=== PATIENT | male | born 1995 | race Hispanic/Latino ===

== ENCOUNTER 2017-01-24 19:37 | Emergency (ER) | payer MEDICAID ==
[~2017-01-24] VITALS: Ht 175.3 cm; Wt 72.0 kg
[~2017-01-24 19:37] MED LIST: ALBUTEROL S2.5 MG/.5 IN; ALBUTEROL SUL0.083 % IN; ALBUTEROL0.083 % IN; ALBUTEROL2.5 MG/3 M IN; AMOXICILLIN500 MG OR; AMOXICILLIN500 MG PO; AMOXIL500 MG OR; BENADRY1 OR; DUONEB IN; KEFLEX500 MG PO; MEDDOSEPAK PO; MOTRIN, CH20 MG/1 ML OR; NASONEX50 MCG/AC NAB; OMNICEF300 MG PO; PATANOL0.1 % OP; PENICILLN VK500 M1 PO; PREDNISODT15 PO; PROAIR HFA IN; PROVENTIL HFA IN; ROBITUSSIN200 MG/10 PO; ROCEPHIN 1 GM1 GM IM; SINGULAIR5 MG OR; SINGULAIR5 MG PO; TET/DIP TOX1 ML IM; ULTRAM50 MG PO; VIGAMOX OD; ZITHROMAX250 MG PO; ZYVOX600 MG PO
[2017-01-24] MEDS ORDERED: LORTAB 1010 MG PO (20:06)
[2017-01-24] MEDS ORDERED: FLOXIN OTIC0.3 % OT (20:06)
[2017-01-24] MEDS ORDERED: AMOXICILLIN875 MG PO (20:06)
[2017-01-24 20:19] VITALS: BP 148/80
== END 2017-01-24 20:22 | disposition home or self-care (01) | DRG 153 ==
LOC: ED 19:37
DX: H66.93 Otitis media, unspecified, bilateral (principal); H92.03 Otalgia, bilateral; R11.2 Nausea with vomiting, unspecified; R50.9 Fever, unspecified; X58.XXXA Exposure to other specified factors, initial encounter; Y93.E8 Activity, other personal hygiene; Y92.009 Unspecified place in unspecified non-institutional (private) residence as the place of occurrence of the external cause

== ENCOUNTER 2020-04-30 17:22 | Emergency (ER) | payer SELFPAY ==
[~2020-04-30] VITALS: Ht 175.3 cm; Wt 72.6 kg
[~2020-04-30 17:22] MED LIST changes: +AMOXICILLIN875 MG PO; +FLOXIN OTIC0.3 % OT; +LORTAB 1010 MG PO
[2020-04-30] MEDS ORDERED: GENTAMICIN SULF5 ML OS (18:29)
[2020-04-30 18:32] VITALS: BP 109/74
== END 2020-04-30 18:32 | disposition home or self-care (01) | DRG 125 ==
LOC: ED 17:22
DX: H10.9 Unspecified conjunctivitis (principal); J45.909 Unspecified asthma, uncomplicated

== ENCOUNTER 2021-01-18 05:35 | Emergency (ER) | payer SELFPAY ==
[~2021-01-18] VITALS: Ht 175.3 cm; Wt 66.0 kg
[~2021-01-18 05:35] MED LIST changes: +GENTAMICIN SULF5 ML OS
[2021-01-18] MEDS ORDERED: PROAIR HFA108 MCG/AC IN (05:54)
[2021-01-18 06:14] LABS: IMMATURE GRANULOCYTES 0.1 % (0.0-5.0); MEAN CORPUSCULAR HGB 30.9 pG CALC (26.0-32.0); MEAN CORPUSCULAR HGB CONC 34.7 g/dL CAL (32.0-36.0); NEUT# 5.31 thou/uL (1.82-7.42); RED BLOOD COUNT 5.66 mill/uL (4.70-6.10); RED CELL DISTRI WIDTH 12.2 % (11.5-15.5)
[2021-01-18 06:16] LABS: HEMATOCRIT 50.4 % (39.0-50.0); HEMOGLOBIN 17.5 g/dl (14.0-18.0)
[2021-01-18] MEDS ORDERED: PREDNISONE50 MG PO (06:33)
[2021-01-18 06:40] VITALS: BP 126/74
== END 2021-01-18 06:40 | disposition home or self-care (01) | DRG 203 ==
LOC: ED 05:35
PROVIDERS: Family Medicine
DX: J45.901 Unspecified asthma with (acute) exacerbation (principal); T48.6X6A Underdosing of antiasthmatics, initial encounter; Z91.128 Patient's intentional underdosing of medication regimen for other reason